=== PATIENT | female | born 1980 | race Caucasian/White ===

== ENCOUNTER 2020-06-12 10:59 | Emergency (ER) | payer MEDICAID ==
[~2020-06-12] VITALS: Ht 157.5 cm; Wt 139.0 kg
[2020-06-12 11:09] VITALS: BP 157/87
== END 2020-06-12 12:59 | disposition home or self-care (01) ==
LOC: ED 12:09
DX: J06.9 Acute upper respiratory infection, unspecified (principal); Z20.828 Contact with and (suspected) exposure to other viral communicable diseases; R50.9 Fever, unspecified; R05 Cough; Z85.42 Personal history of malignant neoplasm of other parts of uterus
CPT/HCPCS: 71045; 87081; 87635; 87880; 99284